=== PATIENT | female | born 2000 | race Caucasian/White ===

== ENCOUNTER 2023-07-06 07:58 | Emergency (ER) | payer BC, SELFPAY ==
[2023-07-06 07:58] VITALS: BP 160/107; PULSE 94; RESP 16; TEMP 36.4; O2SAT 100; BMI 20.7
--- NOTE | 2023-07-06 08:15 | EDS_ITS ---
HPI History of Present Illness Chief Complaint: Hypertension Informant: patient Narrative Narrative: She states her diastolic is always above 90 and usually above 100. Patient states she has had blood pressure readings elevated since she was 18. But she has not checked a lot. She has been checking more recently.Patient presents with elevated blood pressures. Her systolics will go up to 170. She states the higher the blood pressure the more she feels just a little unsteady and occasional dyspnea. Her dyspnea issue has been going on for months if not years. Just sitting here now she feels okay. She does not get chest pain. She occasionally feels palpitations like her heart is missing a beat. She has never been treated or evaluated for the blood pressure readings. She is on no medications including no control. She takes ibuprofen maybe 3 tablets a week. She does vape and was counseled to quit. PFSH PFS Home Medications amlodipine 2.5 mg tablet 2.5 mg PO DAILY #30 tabs 07/06/23 [Rx Last Taken Unknown] Allergy/AdvReac Type Severity Reaction Status Date / Time No Known Allergies Allergy Verified 07/06/23 07:58 Social History Smoking Status: Never smoker ROS ROS ED ROS Narrative A complete review of systems was performed and is negative except as documented in the history of present illness. Some specific details below. Constitutional: No recent fevers or chills. EYE: No discharge, visual complaints, or pain. ENT: No throat pain or reflux. CV: See history of present illness. Respiratory: See history of present illness. GI: No abdominal pain. No nausea vomiting diarrhea. No blood in stool. No notable weight loss or gain. : No frequency dysuria or hematuria. Musculoskeletal: No recent trauma. No pains. No swelling. Skin: No rash. Nondiaphoretic. Neuro: No weakness or numbness. She occasionally has a nonspecific dizziness feeling. She states this is actually more when she lays down or if she bends over or changes position quickly. It is not there currently. Endocrine: No polyuria or polydipsia. EXAM Physical Exam Narrative Exam Narrative: CONSTITUTIONAL: Patient is nontoxic in appearance. The patient looks comfortable. Work of breathing looks normal. HEENT: No notable trauma. Mucous membranes moist. EYES: No conjunctival injection. No proptosis. No pallor. NECK:No JVD. No stridor. CARDIOVASCULAR: Regular rate. Regular rhythm. No notable murmur. No JVD. RESPIRATORY: No respiratory distress. Breathing is unlabored. No wheezes. No rhonchi. No rales. No pain with a deep breath. No chest wall tenderness. Saturations are normal at 100% on room air showing no hypoxia. GASTROINTESTINAL: Not distended. Bowel sounds are normal. No tenderness. No guarding. No rebound. No palpable mass. No bruit is heard. GENITOURINARY: No tenderness over the bladder. No CVA tenderness. MUSCULOSKELETAL: Atraumatic. No peripheral edema. No cord. No tenderness along the deep venous system. No asymmetry. No distended veins. NEUROLOGICAL: Patient is alert and appropriate. No focal deficit noted. SKIN: No noted rashes. No diaphoresis. Multiple tattoos but none look infected. PSYCHIATRIC: Patient is calm. Mood is appropriate. Const Vital Signs: 07/06/23 07:58 07/06/23 08:35 Temperature 97.6 F L Temperature Source Temporal Pulse Rate 94 Respiratory Rate 16 Respiratory Effort Normal Non-Labored Respiratory Pattern Normal Blood Pressure 160/107 H Blood Pressure Mean 124 Pulse Ox 100 Oxygen Delivery Method Room Air MDM MDM MDM Narrative Medical decision making narrative: My independent interpretation of this patient's 2 view PA and lateral chest x- ray shows no acute process and final reading is similar. Patient's test is negative. Patient's basic metabolic panel shows mildly low potassium but normal renal function. I discussed this with the patient including mild dietary changes to improve this. Patient CBC is normal. Patient's blood pressure has been consistently up for some time. This is a rare case where I think getting her started on meds as appropriate. She does not currently have a family doctor. She has symptoms and longstanding blood pre ssure. I have encouraged her to contact family doctor. I will give her a name here. But if she has a name on her insurance card she should call them for close follow-up. Lab Data Attestation: I reviewed the patient's lab results. Labs: Laboratory Results - last 24 hr 07/06/23 07/06/23 08:28 08:40 WBC 7.5 RBC 4.75 Hgb 13.8 Hct 42.0 MCV 88.4 MCH 29.1 MCHC 32.9 RDW Std Deviation 40.2 RDW Coeff of [place] 12.4 Plt Count 286 MPV 10.3 Immature Gran % (Auto) 0.300 Neut % (Auto) 60.5 Lymph % (Auto) 30.8 [place] % (Auto) 4.2 Eos % (Auto) 3.4 Baso % (Auto) 0.8 Absolute Neuts (auto) 4.5 Absolute Lymphs (auto) 2.30 Nucleated RBC % 0 Sodium 137 Potassium 3.2 L Chloride 109 H Carbon Dioxide 25.0 Anion Gap 3 L BUN 7 Creatinine 0.76 Estim Creat Clear Calc 103.60 Est GFR (MDRD) Af Amer 121 Est GFR (MDRD) Non-Af 100 BUN/Creatinine Ratio 9.2 L Glucose 82 Calcium 9.2 Urine Test Negative Radiography Diagnostic Testing: Clinical Impression(s) from Imaging Studies Chest X-Ray 07/06/23 08:35 IMPRESSION: Normal x-ray examination of the chest. Electronically Signed: Niels Henson MD at 8:57 EST , EKG Initial EKG: Comments: My independent interpretation of the patient's EKG shows normal sinus rhythm with overall rate of 81. No ectopy. No acute ST elevation or depression. Minimal baseline variation. NM interval, QRS duration and QTc are normal. No prior found on our system for comparison. Discharge Plan Triage Chief Complaint: Hypertension ED Provider: Tony Quiñones Dx/Rx/DC Orders Clinical Impression: Elevated blood pressure reading Instructions: ED Hypertension New Begin Treatment Prescriptions: New amlodipine 2.5 mg tablet 2.5 mg PO DAILY Qty: 30 1RF Primary Care Provider: Care Physician,No Primary Referrals: Gisela Bach MD [Med Staff - Architectural Drafting Instructor] - As soon as possible Care Physician,No Primary [Primary Care Provider] - Disposition Disposition: Home, Self Care
--- NOTE | 2023-07-06 08:35 | RAD_ITS ---
STUDY: X-RAY CHEST REASON FOR EXAM: Female, 22 years old. Dyspnea TECHNIQUE: PA and lateral views of the chest. COMPARISON: None. FINDINGS: The lungs are clear and expanded. There is no demonstrated pleural abnormality. Normal size heart. Normal mediastinum and avelino. Normal visualized pulmonary arteries. Normal visualized aortic arch and descending thoracic aorta. Normal visualized thoracic spine. Normal visualized ribs, clavicles, and shoulders. There is no demonstrated abnormality of the visualized soft tissue structures of the upper abdomen. RAD/Chest PA and Lateral IMPRESSION: Normal x-ray examination of the chest. Electronically Signed: Niels Henson MD at 8:57 EST ,
[2023-07-06 08:44] LABS: Absolute Neutrophil Count 4.5 X10^3/uL (2.0-7.7); Basophil# 0.06 X10^3/uL; Basophil% 0.8 % (0-1); Eosinophil# 0.25 X10^3/uL; Eosinophils% 3.4 % (0-5); Hemoglobin 13.8 g/dL (12.0-15.0); Lymphocyte % 30.8 % (19-41); Mean Corp Hgb Conc 32.9 g/dL (32-36); Mean Corpuscular Hgb 29.1 pg (27.0-32.0); Mean Corpuscular Volume 88.4 fL (81-99); Mean Platelet Vol. 10.3 fl (6.2-12.0); Monocyte# 0.31 X10^3/uL; Monocyte% 4.2 % (0-10); NRBC Flagged by Analyzer 0 % (0-5); Neutrophil # 4.52 X10^3/uL (2.7-7.7); Neutrophil % 60.5 % (47-70); Platelet Count 286 K/mm3 (150-450); RBC Distribution Width CV 12.4 % (11.6-14.6); RBC Distribution Width SD 40.2 fl (35.1-43.9); Red Blood Count 4.75 M/mm3 (4.2-5.4); White Blood Count 7.5 K/mm3 (4.4-11.0)
[2023-07-06 08:50] LABS: Internal QC Validated? YES +Cl - CLEAR BKGD; Pregnancy, Urine Negative Negative
[2023-07-06 09:06] LABS: Anion Gap 3 (5-15); BUN 7 mg/dL (7-18); BUN/Creat Ratio 9.2 RATIO (10-20); Calcium,Total 9.2 mg/dL (8.5-10.1); Chloride 109 mmol/L (98-107); Creatinine, Serum 0.76 mg/dL (0.55-1.02); EST Glomerular Filtration Rate 100 mL/min (>60); Est Glom Filt Rate - Afr Amer 121 mL/min (>60); Glucose 82 mg/dL (74-106); Potassium 3.2 mmol/L (3.5-5.1); Sodium Level 137 mmol/L (136-145)
[2023-07-06 09:37] VITALS: BP 156/79; PULSE 82; RESP 16; O2SAT 98
== END 2023-07-06 09:38 | disposition home or self-care (01) ==
PROVIDERS: Emergency Provider Emergency Medicine; Visit Provider Emergency Medicine
DX: R03.0 Elevated blood-pressure reading, without diagnosis of hypertension (principal); R06.00 Dyspnea, unspecified; R00.2 Palpitations; F17.290 Nicotine dependence, other tobacco product, uncomplicated
CPT/HCPCS: 71046; 80048; 81025; 85025; 93005; 99284